=== PATIENT | male | born 1955 | race Caucasian/White ===

== ENCOUNTER 2020-09-22 16:58 | Inpatient (IN) | payer OTHER ==
[~2020-09-22] VITALS: Ht 175.3 cm; Wt 87.6 kg
[2020-09-22 18:23] LABS: BASOPHILS % (AUTO) 1 % (0-1); EOSINOPHILS % (AUTO) 2 % (1-7); LYMPHOCYTES % (AUTO) 19 % (22-44); MD NO; MEAN CORPUSCULAR HEMOGLOBIN 33.5 pg (27.5-34.5); MEAN CORPUSCULAR HGB CONC 35.2 g/dL (33.2-36.2); MEAN PLATELET VOLUME 10.1 fL (7.4-10.4); MONOCYTES % (AUTO) 10 % (2-9); NEUTROPHILS % (AUTO) 69 % (42-75); PLATELET COUNT 126 x10^3/uL (130-400); RED BLOOD COUNT 3.88 x10^6/uL (4.38-5.82)
--- NOTE | 2020-09-22 18:29 | NUR ---
LABS COMPLETED. US AT BEDSIDE NOW
[2020-09-22] MEDS ORDERED: SODIUM CHLORIDE FLUSH 10ML SYR IVF ONE (18:30)
[2020-09-22 18:34] LABS: ALANINE AMINOTRANSFERASE 293 U/L (12-78); ALBUMIN 3.9 g/dL (3.4-5.0); ANION GAP 10 mmol/L (5-15); CALCIUM 9.1 mg/dL (8.5-10.1); CHLORIDE 98 mmol/L (98-107); CREATININE 4.49 mg/dL (0.7-1.3)
[2020-09-22 18:36] LABS: INTERNATIONAL NORMALIZED RATIO 1.12 (0.93-1.1)
[2020-09-22 18:37] LABS: ALKALINE PHOSPHATASE 108 U/L (45-117); BILIRUBIN,TOTAL 0.6 mg/dL (0.2-1.0); TOTAL PROTEIN 7.8 g/dL (6.4-8.2)
[2020-09-22 19:01] LABS: MICROSCOPIC NOT IND
--- NOTE | 2020-09-22 19:08 | NUR ---
840 POST VOID RESIDUAL PROVIDER AWARE.
[2020-09-22] MEDS ORDERED: SODIUM CHLORIDE 0.9% 1,000 ML IV ONE (19:30)
[2020-09-22] MEDS ORDERED: SODIUM CHLORIDE 0.9% 1,000ML IVBOLUS ONE (19:30)
[2020-09-22 21:46] VITALS: BP 152/83
[2020-09-22] MEDS ORDERED: POLYETHYLENE GLYCOL 17 GM PACKET PO PRN (22:30)
[2020-09-22] MEDS ORDERED: PROMETHAZINE 25 MG/ML, 1ML IM PRN (22:30)
[2020-09-22] MEDS ORDERED: ONDANSETRON 2MG/ML, 2ML IVPush PRN (22:30)
[2020-09-22] MEDS ORDERED: BISACODYL 10 MG SUPP PR PRN (22:30)
[2020-09-22] MEDS ORDERED: ACETAMINOPHEN 325 MG TABLET PO PRN (22:30)
[2020-09-22] MEDS: MELATONIN 5 MG TABLET PO PRN (22:42)
[2020-09-22] MEDS: HEPARIN 5,000 UNITS/ML, 1ML SQ SCH (22:43)
[2020-09-23] MEDS: LACTATED RINGERS 1,000 ML IV SCH ×3 (00:20→23:06)
[2020-09-23 01:01] VITALS: BP 142/76
[2020-09-23 05:14] LABS: BASOPHILS % (AUTO) 1 % (0-1); EOSINOPHILS % (AUTO) 2 % (1-7); LYMPHOCYTES % (AUTO) 17 % (22-44); MEAN CORPUSCULAR HGB CONC 35.4 g/dL (33.2-36.2); MEAN PLATELET VOLUME 10.5 fL (7.4-10.4); MONOCYTES % (AUTO) 11 % (2-9); NEUTROPHILS % (AUTO) 70 % (42-75); PLATELET COUNT 97 x10^3/uL (130-400); RED BLOOD COUNT 3.58 x10^6/uL (4.38-5.82); RED CELL DISTRIBUTION WIDTH 12.7 % (9.4-14.8)
[2020-09-23 05:16] LABS: MD NO
[2020-09-23 05:19] LABS: ALBUMIN 3.5 g/dL (3.4-5.0); ANION GAP 10 mmol/L (5-15); CALCIUM 9.4 mg/dL (8.5-10.1); CHLORIDE 107 mmol/L (98-107)
[2020-09-23 05:22] LABS: ALANINE AMINOTRANSFERASE 231 U/L (12-78); ALKALINE PHOSPHATASE 94 U/L (45-117); BILIRUBIN,TOTAL 0.6 mg/dL (0.2-1.0); CREATININE 3.82 mg/dL (0.7-1.3); TOTAL PROTEIN 7.2 g/dL (6.4-8.2)
[2020-09-23] MEDS: HEPARIN 5,000 UNITS/ML, 1ML SQ SCH ×2 (05:40→16:51)
[2020-09-23 06:15] LABS: CHLORIDE,URINE RANDOM 52 mmol/L; POTASSIUM,URINE RANDOM 8 mmol/L; SODIUM,URINE RANDOM 50 mmol/L
[2020-09-23 07:16] VITALS: BP 115/69
[2020-09-23] MEDS: TAMSULOSIN 0.4 MG CAP.ER.24H PO SCH (07:46)
[2020-09-23] MEDS: SENNA/DOCUSATE TABLET PO SCH (07:46)
[2020-09-23] MEDS: LOPERAMIDE 2 MG CAPSULE PO PRN ×3 (10:37→20:59)
[2020-09-23 12:22] LABS: ABSOLUTE RETICS # 0.019 x10^6/uL (0.5-1.5); RED BLOOD COUNT 3.82 x10^6/uL (4.38-5.82); RETICULOCYTE COUNT % 0.5 % (0.5-1.5)
[2020-09-23 12:25] LABS: CALCIUM 9.3 mg/dL (8.5-10.1)
[2020-09-23 12:59] VITALS: BP 111/74
[2020-09-23 19:32] VITALS: BP 125/80
[2020-09-23] MEDS: MELATONIN 5 MG TABLET PO PRN (20:59)
[2020-09-24 01:43] VITALS: BP 131/86
[2020-09-24 05:08] LABS: BASOPHILS % (AUTO) 0 % (0-1); EOSINOPHILS % (AUTO) 2 % (1-7); LYMPHOCYTES % (AUTO) 19 % (22-44); MEAN CORPUSCULAR HEMOGLOBIN 34.2 pg (27.5-34.5); MEAN PLATELET VOLUME 9.9 fL (7.4-10.4); MONOCYTES % (AUTO) 12 % (2-9); NEUTROPHILS % (AUTO) 67 % (42-75); PLATELET COUNT 76 x10^3/uL (130-400); RED BLOOD COUNT 3.42 x10^6/uL (4.38-5.82); RED CELL DISTRIBUTION WIDTH 12.8 % (9.4-14.8)
[2020-09-24 05:14] LABS: ALBUMIN 3.2 g/dL (3.4-5.0); ANION GAP 7 mmol/L (5-15); CALCIUM 9.1 mg/dL (8.5-10.1); CHLORIDE 108 mmol/L (98-107); CREATININE 2.71 mg/dL (0.7-1.3)
[2020-09-24 05:39] LABS: MD SCAN
[2020-09-24 07:07] VITALS: BP 125/81
[2020-09-24] MEDS: TAMSULOSIN 0.4 MG CAP.ER.24H PO SCH (08:25)
[2020-09-24] MEDS: SENNA/DOCUSATE TABLET PO SCH (08:26)
[2020-09-24] MEDS: LACTATED RINGERS 1,000 ML IV SCH ×3 (09:40→21:25)
[2020-09-24 12:39] VITALS: BP 133/91
[2020-09-24 18:51] VITALS: BP 118/82
[2020-09-24] MEDS: LOPERAMIDE 2 MG CAPSULE PO PRN (21:22)
[2020-09-24] MEDS: MELATONIN 5 MG TABLET PO PRN (21:22)
[2020-09-25 01:10] VITALS: BP 117/78
[2020-09-25 04:48] LABS: BASOPHILS % (AUTO) 1 % (0-1); EOSINOPHILS % (AUTO) 3 % (1-7); LYMPHOCYTES % (AUTO) 18 % (22-44); MEAN CORPUSCULAR HEMOGLOBIN 34.1 pg (27.5-34.5); MEAN CORPUSCULAR HGB CONC 35.3 g/dL (33.2-36.2); MEAN PLATELET VOLUME 10.2 fL (7.4-10.4); MONOCYTES % (AUTO) 12 % (2-9); NEUTROPHILS % (AUTO) 67 % (42-75); PLATELET COUNT 70 x10^3/uL (130-400); RED BLOOD COUNT 3.26 x10^6/uL (4.38-5.82)
[2020-09-25 04:51] LABS: MD NO
[2020-09-25 04:59] LABS: ALANINE AMINOTRANSFERASE 151 U/L (12-78); ANION GAP 7 mmol/L (5-15); CALCIUM 8.6 mg/dL (8.5-10.1); CHLORIDE 111 mmol/L (98-107); CREATININE 2.19 mg/dL (0.7-1.3)
[2020-09-25 05:01] LABS: ALKALINE PHOSPHATASE 80 U/L (45-117); BILIRUBIN,TOTAL 0.4 mg/dL (0.2-1.0); TOTAL PROTEIN 6.3 g/dL (6.4-8.2)
[2020-09-25 06:48] VITALS: BP 113/75
[2020-09-25] MEDS ORDERED: MAGNESIUM SULFATE PMX 2GM/50ML 50 ML IV ONE (08:00)
[2020-09-25] MEDS: SENNA/DOCUSATE TABLET PO SCH (08:03)
[2020-09-25] MEDS: LOPERAMIDE 2 MG CAPSULE PO PRN ×2 (08:06→21:45)
[2020-09-25] MEDS: TAMSULOSIN 0.4 MG CAP.ER.24H PO SCH (08:06)
[2020-09-25] MEDS: LACTATED RINGERS 1,000 ML IV SCH (09:50)
[2020-09-25] MEDS: SODIUM CHLORIDE 0.45% 1,000 ML IV SCH ×2 (10:13→18:00)
[2020-09-25 12:24] VITALS: BP 109/72
[2020-09-25 12:58] LABS: CREATININE,URINE RANDOM 50.5 mg/dL
[2020-09-25 20:08] VITALS: BP 118/84
[2020-09-25] MEDS: MELATONIN 5 MG TABLET PO PRN (21:45)
[2020-09-26 00:14] VITALS: BP 105/66
[2020-09-26] MEDS: SODIUM CHLORIDE 0.45% 1,000 ML IV SCH ×2 (02:13→10:23)
[2020-09-26 05:24] LABS: BASOPHILS % (AUTO) 0 % (0-1); EOSINOPHILS % (AUTO) 4 % (1-7); LYMPHOCYTES % (AUTO) 19 % (22-44); MEAN CORPUSCULAR HGB CONC 35.1 g/dL (33.2-36.2); MEAN PLATELET VOLUME 10.2 fL (7.4-10.4); MONOCYTES % (AUTO) 11 % (2-9); NEUTROPHILS % (AUTO) 66 % (42-75); PLATELET COUNT 72 x10^3/uL (130-400); RED BLOOD COUNT 3.13 x10^6/uL (4.38-5.82); RED CELL DISTRIBUTION WIDTH 12.7 % (9.4-14.8)
[2020-09-26 05:32] LABS: CHLORIDE 107 mmol/L (98-107)
[2020-09-26 05:41] LABS: ALANINE AMINOTRANSFERASE 132 U/L (12-78); ALBUMIN 2.9 g/dL (3.4-5.0); ALKALINE PHOSPHATASE 73 U/L (45-117); ANION GAP 5 mmol/L (5-15); BILIRUBIN,TOTAL 0.4 mg/dL (0.2-1.0); CALCIUM 8.9 mg/dL (8.5-10.1); CREATININE 1.77 mg/dL (0.7-1.3); MD NO; TOTAL PROTEIN 6.1 g/dL (6.4-8.2)
[2020-09-26 06:56] VITALS: BP 122/81
[2020-09-26] MEDS: SENNA/DOCUSATE TABLET PO SCH (09:00)
[2020-09-26] MEDS: LOPERAMIDE 2 MG CAPSULE PO PRN (09:29)
[2020-09-26] MEDS: TAMSULOSIN 0.4 MG CAP.ER.24H PO SCH (09:29)
[2020-09-26] MEDS ORDERED: TAMS-11 PO (12:09)
[2020-09-26 12:13] VITALS: BP 121/79
== END 2020-09-26 15:15 | disposition home or self-care (01) | DRG 682 ==
LOC: ED 19:27 → EDIP 20:18 → 4WST 20:24 → DCLOUNGE 09-26 15:04
PROVIDERS: ADMIT Internal Medicine; ATTEND Family Medicine
DX: N17.9 Acute kidney failure, unspecified (principal); G93.41 Metabolic encephalopathy; E87.2 Acidosis; R78.81 Bacteremia; E87.1 Hypo-osmolality and hyponatremia; B19.20 Unspecified viral hepatitis C without hepatic coma; D64.9 Anemia, unspecified; E83.42 Hypomagnesemia; I12.9 Hypertensive chronic kidney disease with stage 1 through stage 4 chronic kidney disease, or unspecified chronic kidney disease; N13.6 Pyonephrosis; N18.9 Chronic kidney disease, unspecified; N32.0 Bladder-neck obstruction; N32.89 Other specified disorders of bladder; N40.1 Benign prostatic hyperplasia with lower urinary tract symptoms; Z86.16 Personal history of COVID-19; E86.0 Dehydration; E79.0 Hyperuricemia without signs of inflammatory arthritis and tophaceous disease; Z79.899 Other long term (current) drug therapy; Z79.891 Long term (current) use of opiate analgesic; Z79.01 Long term (current) use of anticoagulants; D69.6 Thrombocytopenia, unspecified
CPT/HCPCS: 36415; 71045; 74176; 76770; 80053; 80069; 80074; 80299; 80320; 81003; 82140; 82306; 82310; 82436; 82570; 82728; 83540; 83550; 83735; 83930; 83970; 84100; 84133; 84156; 84300; 84550; 85025; 85045; 85610; 85730; 87521; 87522; 87902; 93005; G0378; J1644; G0480; J3475; J7030; J7120